=== PATIENT | male | born 1995 | race Caucasian/White ===

== ENCOUNTER 2016-09-18 09:54 | Day surgery (SDC) | payer OTHER ==
[2016-09-15 15:16] VITALS: BMI 29.1
[2016-09-18] VITALS (10 sets, daily range): BP systolic 124–139; BP diastolic 51–82; PULSE 48–110; RESP 12–25; Ht 185.4 cm; Wt 97.9 kg
[~2016-09-18] VITALS: Ht 185.4 cm; Wt 97.9 kg
[~2016-09-18 09:54] MED LIST: CEFAZOLIN 2 GM/50 ML (PMX) 50 ML IVPB SCH; IBUP-1542 PO; OXYC-279 PO; SOD CHLORIDE 0.9% 1,000 ML IV SCH
[2016-09-18 10:48] LABS: ADD SCAN DIFF NO
[2016-09-18 10:50] LABS: BASOPHILS % 0.5 % (0.0-2.0); EOSINOPHILS # 0.1 10^3/ul (0.0-0.5); EOSINOPHILS % 2.2 % (0.0-7.0); HEMATOCRIT 43.6 % (42.0-52.0); HEMOGLOBIN 14.5 g/dl (14.0-18.0); LYMPHOCYTES # 1.9 10^3/ul (0.8-2.9); LYMPHOCYTES % 32.7 % (15.0-51.0); MEAN CORPUSCULAR HEMOGLOBIN 27.9 pg (29.0-33.0); MEAN CORPUSCULAR HGB CONC 33.3 g/dl (32.0-37.0); MEAN PLATELET VOLUME 9.2 fl (7.4-10.4); MONOCYTE # 0.3 10^3/ul (0.3-0.9); NEUTROPHIL # 3.4 10^3/ul (1.6-7.5); NEUTROPHILS % 59.3 % (39.0-77.0); PLATELET COUNT 355 10^3/UL (140-415); RED BLOOD COUNT 5.19 10^6/ul (4.70-6.10); RED CELL DISTRIBUTION WIDTH 13.2 % (11.5-14.5); WHITE BLOOD COUNT 5.8 10^3/ul (4.8-10.8)
[2016-09-18 11:18] LABS: ALBUMIN 4.5 g/dl (3.3-4.9)
[2016-09-18 11:21] LABS: ALBUMIN/GLOBULIN RATIO 1.4; BILIRUBIN,INDIRECT 0.4 mg/dl (0-1.1); BILIRUBIN,TOTAL 0.4 mg/dl (0.2-1.3); TOTAL PROTEIN 7.7 g/dl (6.1-8.1)
[2016-09-18 11:24] LABS: INR 1.02; PROTIME 13.4 Sec (12.2-14.2)
[2016-09-18 11:25] LABS: PARTIAL THROMBOPLASTIN TIME 31.8 Sec (25.0-35.0)
[2016-09-18 11:27] LABS: CALCIUM 9.4 mg/dl (8.4-10.2); CREATININE 0.75 mg/dl (0.61-1.24); POTASSIUM 3.5 mmol/L (3.5-5.1)
[2016-09-18] MEDS ORDERED: BUPIVACAINE 0.25% (MPF) 30 ML INJ ONE (11:48)
[2016-09-18] MEDS ORDERED: SUCCINYLCHOLINE CHLORIDE 100 MG/5 ML SYG IV ONE (12:12)
[2016-09-18] MEDS ORDERED: CEFAZOLIN 1 GM INJ ONE (12:12)
[2016-09-18] MEDS ORDERED: FENTAnyl 50 MCG/ML VIAL ONE ×2 (12:12→12:19)
[2016-09-18] MEDS ORDERED: MIDAZOLAM 1 MG/ML 2 ML INJ ONE (12:12)
[2016-09-18] MEDS ORDERED: PROPOFOL 40 ML ONE (12:12)
[2016-09-18] MEDS ORDERED: KETOROLAC 30 MG INJ ONE (12:26)
[2016-09-18] MEDS ORDERED: METOCLOPRAMIDE 10 MG INJ ONE (12:26)
[2016-09-18] MEDS ORDERED: DEXAMETHASONE 4 MG/ML 1 ML INJ ONE (12:26)
[2016-09-18] MEDS ORDERED: ONDANSETRON 4 MG INJ ONE (12:26)
[2016-09-18] MEDS ORDERED: DIPHENHYDRAMINE 50 MG INJ IV PRN (12:30)
[2016-09-18] MEDS ORDERED: MEPERIDINE 25 MG INJ IV PRN (12:30)
[2016-09-18] MEDS ORDERED: METOCLOPRAMIDE 10 MG INJ IV PRN (12:30)
[2016-09-18] MEDS ORDERED: morphine (1 MG/ML) 10ML SYRINGE IV PRN ×3 (12:30)
[2016-09-18] MEDS ORDERED: OXYCODONE/ACETAMINOPHEN (5/325) TAB PO PRN ×2 (12:30)
[2016-09-18] MEDS ORDERED: HYDROmorphONE (0.2 MG/ML) 10ML SYG IV PRN ×3 (12:30)
[2016-09-18] MEDS ORDERED: ONDANSETRON 4 MG INJ IV PRN (12:30)
--- NOTE | 2016-09-18 12:36 | OPR ---
Date/Time of Note Date/Time of Note DATE: 09/18/16 TIME: 12:35 Operative Report Procedure Date: September 18, 2016 Preoperative Diagnosis right face mass Postoperative Diagnosis right face mass Operation Performed 1. excision of right face mass 2 cm incision and 2 cm size mass 2. localized adjacent tissue transfer with use of skin flaps 4 square cm defect Surgeon: Laurie LINCOLN Anesthesia: general Complications: None Laurie LINCOLN September 18, 2016 12:36
[2016-09-18] MEDS ORDERED: ACETAMINOPHEN/CODEINE #3 TAB PO ONE (13:00)
--- NOTE | 2016-09-18 15:49 | OPR ---
DATE OF OPERATION: 09/18/2016 INDICATION: This is a 20-year-old male with a right face mass. He requests surgical excision. Ris ks, alternatives, benefits, and personnel were discussed with the patient. Patient expressed unders tanding and consents to the operation. PREOPERATIVE DIAGNOSIS: Right face mass. POSTOPERATIVE DIAGNOSIS: Right face mass. OPERATION PERFORMED: 1. Excision of right face mass with a 2 cm incision and 2 x 2 cm size mass. 2. Localized adjacent tissue transfer with the use of skin flaps with 4 square cm defect. SURGEON: Tye Arrieta MD SPECIMEN: Right face mass. COMPLICATIONS: None. ANESTHESIA: General. PROCEDURE: The patient was taken to the OR and prepped and draped in the usual sterile fashion. Philippe rgical timeout was performed. IV antibiotics were given. An elliptical incision was made over the right face mass with a 15 blade. Dissection cautery was carried down to the mass and circumferentia lly excised. Due to the large tissue defect, localized adjacent tissue transfer with use of skip fl aps were performed. A multilayer closure with interrupted 3-0 Vicryl and running 4-0 Monocryl. Loc al anesthesia was injected. Dry dressings were applied. Dictated By: TYE MONTENEGRO/ALBERTO Conf#: [id number] DID#: [id number]
== END 2016-09-18 14:45 | disposition home or self-care (01) ==
LOC: SDS 09:54
PROVIDERS: ATTEND Surgery
DX: L72.0 Epidermal cyst (principal); F17.200 Nicotine dependence, unspecified, uncomplicated
CPT/HCPCS: 14040; 80053; 85025; 85610; 85730; 88307; J0330; J0690; J1100; J1885; J2250; J2405; J2765; J3010; Z7512; Z7610